=== PATIENT | male | born 1990 | race Caucasian/White ===

== ENCOUNTER → 2023-09-19 | Outpatient (CLI) | payer OTHER | LOC: RAD 09:00 | DX: N50.89 Other specified disorders of the male genital organs (principal) ==

== ENCOUNTER → 2024-05-16 | Outpatient (CLI) | payer OTHER | LOC: RAD 12:43 | DX: M25.512 Pain in left shoulder (principal) ==

== ENCOUNTER → 2024-05-25 | Outpatient (CLI) | payer OTHER | LOC: RAD 14:09 | DX: S49.92XD Unspecified injury of left shoulder and upper arm, subsequent encounter (principal) ==